=== PATIENT | female | born 1995 | race Caucasian/White ===

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

== ENCOUNTER 2019-07-24 18:14 | Emergency (ER) | payer OTHER ==
[~2019-07-24] VITALS: Ht 162.6 cm; Wt 48.6 kg
[~2019-07-24 18:14] MED LIST changes: +BACL-19 PO; +DOCU100C33 PO; -DOCU100C8 PO; +TOPI100T24 PO; -UBID1CAP24 PO; +UBID1CAP43 PO
[2019-07-24] MEDS ORDERED: FAMOTIDINE 20 MG/2 ML ONE (18:54)
[2019-07-24] MEDS ORDERED: ONDANSETRON 2MG/ML, 2ML ONE (18:55)
[2019-07-24] MEDS ORDERED: MORPHINE SULFATE 4 MG/ML, 1ML ONE ×2 (18:55→19:45)
[2019-07-24] MEDS ORDERED: ONDANSETRON 2MG/ML, 2ML IVPush ONE ×2 (19:00→21:00)
[2019-07-24] MEDS ORDERED: FAMOTIDINE 20 MG/2 ML IVPush ONE (19:00)
[2019-07-24] MEDS ORDERED: SODIUM CHLORIDE FLUSH 10ML SYR IVF ONE (19:00)
[2019-07-24 19:08] LABS: ALANINE AMINOTRANSFERASE 18 U/L (12-78); ALBUMIN 4.3 g/dL (3.4-5.0); ANION GAP 10 mmol/L (5-15); CALCIUM 9.2 mg/dL (8.5-10.1); CHLORIDE 109 mmol/L (98-107); CREATININE 0.88 mg/dL (0.55-1.02)
[2019-07-24] MEDS: MORPHINE SULFATE 4 MG/ML, 1ML IVPush PRN ×2 (19:09→19:50)
[2019-07-24 19:13] LABS: ALKALINE PHOSPHATASE 61 U/L (45-117); BILIRUBIN,TOTAL 0.4 mg/dL (0.2-1.0); TOTAL PROTEIN 8.4 g/dL (6.4-8.2)
[2019-07-24] MEDS ORDERED: MAALOX/HYOSCYAMINE/LIDOCAINE 45 ML BTL ONE (19:54)
[2019-07-24] MEDS ORDERED: MAALOX/HYOSCYAMINE/LIDOCAINE 45 ML BTL PO ONE (20:00)
[2019-07-24 20:10] LABS: BASOPHILS # (AUTO) 0.04 x10^3/uL (0-0.1); BASOPHILS % (AUTO) 0 % (0-1); EOSINOPHILS # (AUTO) 0.06 x10^3/uL (0-0.4); EOSINOPHILS % (AUTO) 1 % (1-7); LYMPHOCYTES # (AUTO) 3.03 x10^3/uL (1-3.4); LYMPHOCYTES % (AUTO) 36 % (22-44); MD NO; MEAN CORPUSCULAR HEMOGLOBIN 29.1 pg (27.0-34.8); MEAN CORPUSCULAR VOLUME 88.4 fL (80-100); MEAN PLATELET VOLUME 8.1 fL (7.4-10.4); MONOCYTES # (AUTO) 0.58 x10^3/uL (0.2-0.8); MONOCYTES % (AUTO) 7 % (2-9); NEUTROPHILS # (AUTO) 4.67 x10^3/uL (1.8-6.8); NEUTROPHILS % (AUTO) 56 % (42-75); PLATELET COUNT 329 x10^3/uL (130-400); RED BLOOD COUNT 4.58 x10^6/uL (3.82-5.3); RED CELL DISTRIBUTION WIDTH 15.1 % (9.6-15.2)
[2019-07-24] MEDS ORDERED: HYDROmorphone 1 MG/ML, 1ML VIAL ONE (20:41)
[2019-07-24] MEDS ORDERED: HYDROmorphone 1 MG/ML, 1ML INJ IV ONE (21:00)
--- NOTE | 2019-07-24 21:13 | NUR ---
pt medicated and now resting comfortably. family at bedside. awaiting ct at this time. no wants or needs expressed.
[2019-07-24 21:30] LABS: MICROSCOPIC NOT IND
--- NOTE | 2019-07-24 21:37 | NUR ---
REPORT OF PT FROM ANGELLA FRANCISCO AND ASSUMING CARE OF PT AT THIS TIME
[2019-07-24 21:38] LABS: CULTURE INDICATED? NO
[2019-07-24] MEDS ORDERED: OMNIPAQUE 350 MG/ML, 100ML BOTTLE ONE (21:50)
--- NOTE | 2019-07-24 23:17 | NUR ---
PT D/C WITH D/C SUMMARY AND SCRIPTS. ALL QUESTIONS ANSWERED. PT DENIES ANY OTHER NEEDS PERTAINING TO THIS VISIT AND AMBULATES TO REGISTRATION DESK WITH STEADY GAIT FOR D/C HOME WITH MOTHER. PT VERBALIZES UNDERSTANDING OF F/U WITH GASTROENTEROLOGY.
[2019-07-24 23:18] VITALS: BP 108/71
== END 2019-07-24 23:19 | disposition home or self-care (01) ==
LOC: ED 22:45
DX: R10.12 Left upper quadrant pain (principal); R10.13 Epigastric pain; R11.0 Nausea; Z90.49 Acquired absence of other specified parts of digestive tract
CPT/HCPCS: 36415; 74177; 76700; 80053; 81003; 83605; 83690; 84703; 85025; 93005; 96374; 96375; 96376; 99284; J1170; J2270; J2405; J3490; Q9967